=== PATIENT | female | born 1970 | race Caucasian/White ===

== ENCOUNTER 2022-04-17 14:38 | Emergency (ER) | payer OTHER, SELFPAY ==
[2022-04-17 14:39] VITALS: BP 189/100; PULSE 84; RESP 18; TEMP 36.4; O2SAT 98; BMI 32.4
--- NOTE | 2022-04-17 14:43 | EKG12_ITS ---
Test Reason : CP Blood Pressure : / mmHG Vent. Rate : 082 BPM Atrial Rate : 082 BPM P-R Int : 124 ms QRS Dur : 078 ms QT Int : 362 ms P-R-T Axes : 051 060 045 degrees QTc Int : 422 ms Sinus rhythm with Premature atrial complexes with Aberrant conduction Otherwise normal ECG Confirmed by BILL CHESTER, GINO ([id number]), editor continuity and script JULIA MASSEY ([id number]) on 04/19/2022 10:42:46 AM Referred By: KENYATTA Confirmed By:GINO KHAN MD
[2022-04-17 15:02] LABS: Absolute Lymphocyte Count 2.05 X10^3/uL (0.83-4.51); Absolute Neutrophil Count 3.5 X10^3/uL (2.0-7.7); Basophil# 0.04 X10^3/uL; Basophil% 0.6 % (0-1); Eosinophil# 0.15 X10^3/uL; Eosinophils% 2.4 % (0-5); Hematocrit 41.9 % (37-47); Hemoglobin 14.3 g/dL (12.0-15.0); Lymphocyte # 2.05 X10^3/ul (0.83-4.51); Lymphocyte % 33.1 % (19-41); Mean Corp Hgb Conc 34.1 g/dL (32-36); Mean Corpuscular Hgb 29.5 pg (27.0-32.0); Mean Corpuscular Volume 86.6 fL (81-99); Mean Platelet Vol. 9.8 fl (6.2-12.0); Monocyte# 0.41 X10^3/uL; Monocyte% 6.6 % (0-10); NRBC Flagged by Analyzer 0 % (0-5); Neutrophil # 3.53 X10^3/uL (2.7-7.7); Neutrophil % 57.1 % (47-70); Platelet Count 276 K/mm3 (150-450); RBC Distribution Width CV 12.6 % (11.6-14.6); RBC Distribution Width SD 39.9 fl (35.1-43.9); Red Blood Count 4.84 M/mm3 (4.2-5.4); White Blood Count 6.2 K/mm3 (4.4-11.0)
[2022-04-17 15:31] LABS: Anion Gap 4 (5-15); BUN 13 mg/dL (7-18); BUN/Creat Ratio 15.8 RATIO (10-20); Calcium,Total 9.3 mg/dL (8.5-10.1); Chloride 106 mmol/L (98-107); Creatinine, Serum 0.82 mg/dL (0.55-1.02); EST Glomerular Filtration Rate 78 mL/min (>60); Est Glom Filt Rate - Afr Amer 94 mL/min (>60); Estimated Creatinine Clearance 70.88 ml/min; Glucose 103 mg/dL (74-106); Potassium 3.6 mmol/L (3.5-5.1); Sodium Level 138 mmol/L (136-145); Troponin-I HS 5 pg/mL (3.0-54.0)
[2022-04-17 16:01] VITALS: O2SAT 97
--- NOTE | 2022-04-17 16:05 | RAD_ITS ---
STUDY: X-RAY CHEST REASON FOR EXAM: Female, 51 years old. chest pain TECHNIQUE: Single AP portable view of the chest. COMPARISON: None. FINDINGS: The lungs are clear and expanded. There is no demonstrated pleural abnormality. Normal size heart. Normal mediastinum and gareth. Normal visualized pulmonary arteries. Normal visualized aortic arch and descending thoracic aorta. Normal visualized thoracic spine. Normal visualized ribs, clavicles, and shoulders. There is no demonstrated abnormality of the visualized soft tissue structures of the upper abdomen. RAD/Chest 1 View (Portable) IMPRESSION: No evidence of acute cardiopulmonary process. Electronically Signed: Luis Nicholas DO at 16:34 EST ,
--- NOTE | 2022-04-17 16:16 | ED.VIS.CHEST ---
HPI <CHINO Golden - Last Filed: 04/17/22 18:49> History of Present Illness Chief Complaint: Chest Pain Narrative Narrative: Patient presents today with her for an episode of chest pain that she had last night. She states she felt like she had a sharp midsternal pain that radiated to her back and arms bilaterally. The pain lasted for around 10 minutes and then resolved. She states she has had pains like this before, however, they were not as severe. Patient states she called her doctor this morning and he told her to come to the emergency department. Patient has no history of cardiac events but states she thinks her parents both had MIs. She denies current chest pain but states it does feel like her chest is a little heavy. Patient states she has also had some shortness of breath on exertion over the past few months. Patient denies recent illness, fever, abdominal pain, nausea, vomiting, dyspnea. PFSH <CHINO Golden - Last Filed: 04/17/22 18:49> [facility] Medical History Fibrocystic breast disease Home Medications cyanocobalamin (vitamin B-12) 1,000 mcg capsule 1,000 mcg PO DAILY 10/18/21 [History Last Taken Unknown] Allergy/AdvReac Type Severity Reaction Status Date / Time cephalexin [From Keflex] Allergy Intermediate Rash Verified 04/17/22 14:40 Sulfa (Sulfonamide Allergy Intermediate Rash Verified 04/17/22 14:40 Antibiotics) sulfamethoxazole Allergy Intermediate Rash Verified 04/17/22 14:40 [From Bactrim] trimethoprim [From Bactrim] Allergy Intermediate Rash Verified 04/17/22 14:40 Surgical History H/O: hysterectomy History of tonsillectomy Hx of cholecystectomy Social History household members: spouse and children current occupational status: unemployed Smoking Status: Never smoker alcohol intake: never substance use type: does not use what type of physical activity do you participate in: walking seatbelt use: sometimes do you feel safe at home: Yes additional social history: - Wayne MARTINE <CHINO Golden - Last Filed: 04/17/22 18:49> ROS ED Constitutional Constitutional ED: Denies chills, fever(s) or sweats Eyes Eyes: Denies blurry vision, change in vision or diplopia ENT ENT ED: Denies rhinorrhea or sore throat Cardiovascular Cardiovascular: Reports chest pain; Denies palpitations or racing heartbeat Respiratory/Chest Respiratory/Chest: Reports dyspnea on exertion; Denies cough or dyspnea Gastrointestinal Gastrointestinal: Denies abdominal pain, nausea or vomiting Genitourinary Genitourinary ED: Denies dysuria, hematuria or urinary frequency Musculoskeletal Musculoskeletal: Reports back pain; Denies myalgias or neck pain Integumentary Denies abscess, Abrasions or rash Neurologic Neurologic: Denies headache(s), paresthesias or weakness Psychiatric Psychiatric: Denies anxiety, depression or suicidal ideation EXAM <CHINO Golden - Last Filed: 04/17/22 18:49> Physical Exam Const Vital Signs: 04/17/22 14:39 04/17/22 16:01 04/17/22 16:05 Temperature 97.5 F L Temperature Source Temporal Pulse Rate 84 Respiratory Rate 18 Respiratory Effort Short of Breath Blood Pressure 189/100 H Blood Pressure Mean 129 Pulse Ox 98 97 Oxygen Delivery Method Room Air Room Air Positive well nourished and well developed General Appearance ED: well developed and NAD HEENT Reports moist mucous membranes normocephalic and atraumatic Eyes PERRL and EOMs intact bilaterally Neck no lymphadenopathy and supple Chest Wall inspection of chest normal and palpation of chest normal Resp normal respiratory effort and clear to auscultation bilaterally Cardio regular rate, regular rhythm and no murmurs GI soft to palpation, non-tender, non-distended and no masses Back/Spine no thoracic nor lumbar tenderness Cervical Spine: Negative for cervical spine tenderness Extremity normal to inspection General Extremety ED: Negative for edema General Extremity: Negative for edema Neuro oriented x3, CN's II-XII intact bilaterally, no sensory deficits noted and gait normal Sensorium / Orientation: awake and alert Motor Exam: strength 5/5 throughout Psych mental status grossly normal Skin no rashes or lesions noted and no wounds <Dr. Martha Javed MD - Last Filed: 04/17/22 22:39> Physical Exam Const Vital Signs: 04/17/22 14:39 04/17/22 16:01 04/17/22 16:05 Temperature 97.5 F L Temperature Source Temporal Pulse Rate 84 Respiratory Rate 18 Respiratory Effort Short of Breath Blood Pressure 189/100 H Blood Pressure Mean 129 Pulse Ox 98 97 Oxygen Delivery Method Room Air Room Air MDM <CHINO Golden - Last Filed: 04/17/22 18:49> [facility] Narrative Medical decision making narrative: Patient was not complaining of any chest pain here today. Her troponin is normal and blood work is unremarkable. I educated patient that she will need to follow-up with her PCP to have a stress test performed especially since this has happened in the past. Patient is also not on anything for blood pressure so I have encouraged her to talk to her doctor about blood pressure treatment if necessary. Patient is agreeable with plan. I am comfortable with patient discharging home. Lab Data Attestation: I reviewed the patient's lab results. Lab results narrative: CBC normal. Anion gap 4. Troponin 5. Labs: Laboratory Results - last 24 hr 04/17/22 04/17/22 14:50 14:50 WBC 6.2 RBC 4.84 Hgb 14.3 Hct 41.9 MCV 86.6 MCH 29.5 MCHC 34.1 RDW Std Deviation 39.9 RDW Coeff of Sanjay 12.6 Plt Count 276 MPV 9.8 Immature Gran % (Auto) 0.200 Neut % (Auto) 57.1 Lymph % (Auto) 33.1 [place] % (Auto) 6.6 Eos % (Auto) 2.4 Baso % (Auto) 0.6 Absolute Neuts (auto) 3.5 Absolute Lymphs (auto) 2.05 Nucleated RBC % 0 Sodium 138 Potassium 3.6 Chloride 106 Carbon Dioxide 28.0 Anion Gap 4 L BUN 13 Creatinine 0.82 Estim Creat Clear Calc 70.88 Est GFR (MDRD) Af Amer 94 Est GFR (MDRD) Non-Af 78 BUN/Creatinine Ratio 15.8 Glucose 103 Calcium 9.3 Troponin I High Sens 5 Radiography Diagnostic Testing: Clinical Impression(s) from Imaging Studies Chest X-Ray 04/17/22 16:05 IMPRESSION: No evidence of acute cardiopulmonary process. Electronically Signed: Luis Nicholas DO at 16:34 EST , Chest x-ray reviewed and I agree with radiologist impressions. This has also been reviewed by attending ED physician. <Dr. Martha Javed MD - Last Filed: 04/17/22 22:39> [facility] Lab Data Labs: Laboratory Results - last 24 hr 04/17/22 04/17/22 14:50 14:50 WBC 6.2 RBC 4.84 Hgb 14.3 Hct 41.9 MCV 86.6 MCH 29.5 MCHC 34.1 RDW Std Deviation 39.9 RDW Coeff of Sanjay 12.6 Plt Count 276 MPV 9.8 Immature Gran % (Auto) 0.200 Neut % (Auto) 57.1 Lymph % (Auto) 33.1 [place] % (Auto) 6.6 Eos % (Auto) 2.4 Baso % (Auto) 0.6 Absolute Neuts (auto) 3.5 Absolute Lymphs (auto) 2.05 Nucleated RBC % 0 Sodium 138 Potassium 3.6 Chloride 106 Carbon Dioxide 28.0 Anion Gap 4 L BUN 13 Creatinine 0.82 Estim Creat Clear Calc 70.88 Est GFR (MDRD) Af Amer 94 Est GFR (MDRD) Non-Af 78 BUN/Creatinine Ratio 15.8 Glucose 103 Calcium 9.3 Troponin I High Sens 5 Radiography Diagnostic Testing: Clinical Impression(s) from Imaging Studies Chest X-Ray 04/17/22 16:05 IMPRESSION: No evidence of acute cardiopulmonary process. Electronically Signed: Luis Nicholas DO at 16:34 EST Reading Location ID and State: [facility] / [place] , Service support , EKG Initial EKG: Attestation: I personally reviewed and interpreted this EKG as follows: Interpretation: Sinus Rhythm (Sinus at 82 with no acute ischemia.) Treatment and Re-Evaluation Narrative: Patient seen and evaluated with KADY. I personally interviewed and examined the patient. I was involved in all aspects of patient's orders, interpretation of results, and treatment. Patient presents with episode of chest pain that she had last evening. States had some slight heaviness in her chest today but nothing as severe as what she had last evening. She is not had any difficulty recently with performing her daily activities. She denies shortness of breath. Patient sitting upright in bed no acute distress. Head and neck examination unremarkable. Heart is regular rate and rhythm. Lung sounds are clear. No chest wall tenderness. Abdomen is soft and nontender. Lower extreme examination reveals no significant tenderness or edema. Neuro exam is normal. Lab work obtained along with EKG and chest x-ray. Lab work is unremarkable with a normal troponin of 5. Chest x-ray per my interpretation reveals no focal infiltrate. Radiology interpretation is reviewed and agrees. EKG is sinus rhythm at 82 bpm with no acute ischemia. Single PVC is noted. Patient encouraged to follow with her primary care physician for possible outpatient stress test. Return instructions were given if she is having another episode of pain. She voices understanding and agreement. Discharge Plan Triage Chief Complaint: Chest Pain ED Midlevel Provider: Deirdre Peter ED Provider: Martha Javed Dx/Rx/DC Orders Clinical Impression: Chest pain Instructions: ED Chest Pain, Uncertain Cause Prescriptions: No Action cyanocobalamin (vitamin B-12) 1,000 mcg capsule 1,000 mcg PO DAILY Primary Care Provider: Tomi Broderick Referrals: Tomi Broderick DO [Primary Care Provider] - 3-5 Days Activity Restrictions/Additional Instructions: Please follow-up with your PCP so that this can be investigated further. You may need a cardiac stress test. Please return if this happens again. Disposition Disposition: Home, Self Care Discharge Date/Time: 04/17/22 17:10
== END 2022-04-17 17:10 | disposition home or self-care (01) ==
PROVIDERS: Emergency Provider Emergency Medicine; PCP Family Medicine; Visit Provider Emergency Medicine
DX: R07.9 Chest pain, unspecified (principal); R06.02 Shortness of breath
CPT/HCPCS: 71045; 80048; 84484; 85025; 93005; 99284